=== PATIENT | male | born 1975 ===

== ENCOUNTER 2017-08-18 14:53 | Emergency (ER) | payer BC, OTHER ==
[2017-08-18 15:14] VITALS: BP 126/78; PULSE 74; RESP 18; TEMP 98; O2SAT 99
[2017-08-18] MEDS ORDERED: Albuterol-Ipratrop 3 mg / 0.5 (3 ml) UD INH STA (15:40)
--- NOTE | 2017-08-18 15:58 | ED PDOC ---
HPI: CCC, URI, Sore Throat Time Seen by Provider: 08/18/17 15:20 Chief Complaint (Nursing): Cough, Cold, Congestion Chief Complaint (Provider): Cough History Per: Patient History/Exam Limitations: no limitations Onset/Duration Of Symptoms: Days (x5) Current Symptoms Are (Timing): Still Present Additional Complaint(s): 42 y/o male presents to the Emergency Department with 5 day history of cough, productive of yellow sputum. Reports last night he developed a fever, with Tmax 101 but did not take any medications. States he's been taking mucinex without relief. Denies any chest pain, shortness of breath, hemoptysis, sick contacts, or recent travel. Patient is also complaining of dysuria for the past 3 days which has been improving. No penile discharge. Denies any nausea, vomiting, diarrhea, back pain, or flank pain. PMD: None Past Medical History Reviewed: Historical Data, Nursing Documentation, Vital Signs Vital Signs: Last Vital Signs Temp 98.0 F 08/18/17 15:12 Pulse 74 08/18/17 15:12 Resp 18 08/18/17 15:12 BP 126/78 08/18/17 15:12 Pulse Ox 99 08/18/17 16:00 - Surgical History Surgical History: No Surg Hx - Family History Family History: States: Unknown Family Hx - Social History Current smoker - smoking cessation education provided: No Alcohol: None Drugs: Denies - Home Medications Home Medications: Ambulatory Orders Medication Instructions Recorded Codeine Phosphate/Promethazi 5 ml PO Q6 #80 ml 05/29/14 [Promethazine with Codeine 10 mg/5 ml-6.25 mg/] Guaifenesin/Pseudoephedrne HCl 1 tab PO DAILY PRN #30 ter 05/29/14 [Mucinex D 600 mg-60 mg] Acetaminophen/Codeine Phosph 1 tab PO Q6H PRN #15 tab 01/15/15 [Acetaminophen/Codeine 300 mg-30 mg] Amoxicillin/Clavulanate Pota 1 tab PO BID #20 tab 01/15/15 [Augmentin 875 mg-125 mg] Albuterol HFA [Ventolin HFA 90 2 puff IH [id number] PRN #1 inhaler 08/18/17 mcg/actuation (8 g)] Azithromycin [Zithromax] 250 mg PO DAILY #6 tab 04/22/18 Promethazine DM [Phenergan DM 5 - 10 ml PO Q8 PRN #120 ml 08/18/17 Syrup] - Allergies Allergies/Adverse Reactions: Allergies Allergy/AdvReac Type Severity Reaction Status Date / Time No Known Allergies Allergy Verified 05/29/14 12:17 Review of Systems ROS Statement: Except As Marked, All Systems Reviewed And Found Negative Constitutional: Positive for: Fever Cardiovascular: Negative for: Chest Pain Respiratory: Positive for: Cough, Sputum. Negative for: Shortness of Breath, Hemoptysis Gastrointestinal: Negative for: Nausea, Vomiting, Diarrhea Genitourinary Male: Positive for: Dysuria. Negative for: Penile Discharge Musculoskeletal: Negative for: Back Pain, Other (Flank pain) Physical Exam - Reviewed Nursing Documentation Reviewed: Yes Vital Signs Reviewed: Yes - Physical Exam Appears: Positive for: No Acute Distress Head Exam: Positive for: ATRAUMATIC, NORMOCEPHALIC Skin: Positive for: Normal Color, Warm, Dry Eye Exam: Positive for: Normal appearance ENT: Positive for: Normal ENT Inspection Cardiovascular/Chest: Positive for: Regular Rate, Rhythm. Negative for: Murmur Respiratory: Positive for: Wheezing (bilateral expiratory wheezing, R > L). Negative for: Rales, Rhonchi, Respiratory Distress Back: Positive for: Normal Inspection. Negative for: L CVA Tenderness, R CVA Tenderness Neurologic/Psych: Positive for: Alert, Oriented - ECG O2 Sat by Pulse Oximetry: 99 (RA) Pulse Ox Interpretation: Normal - Radiology X-Ray: Interpreted by Me (CXR) X-Ray Interpretation: No Acute Disease (and confirmed by radiologist) - Progress Re-evaluation Time: 16:47 (Informed of results. Advised to f/u with PMD and to return to ED immediately if symptoms worsen. Lungs clear b/l ) Condition: Re-examined, Improved Medical Decision Making Medical Decision Making: Time: 15:49 Initial Plan: --Chest X-Ray --Chlamydia/GC RNA, TMA --Urine culture --Urinalysis --Duoneb 3 ml INH --Peak Flow pre/post treatment Scribe Attestation: Documented by Theresa Montgomery, acting as a scribe for Tavo Wise PA-C. Provider Scribe Attestation: All medical record entries made by the Scribe were at my direction and personally dictated by me. I have reviewed the chart and agree that the record accurately reflects my personal performance of the history, physical exam, medical decision making, and the department course for this patient. I have also personally directed, reviewed, and agree with the discharge instructions and disposition. Disposition - Clinical Impression Clinical Impression: Acute bronchitis - Patient ED Disposition Is Patient to be Admitted: No - Disposition Referrals: [facility] [Outside] [facility] [Outside] Disposition: Routine/Home Disposition Time: 16:51 Condition: IMPROVED Additional Instructions: Follow up with [facility] for further evaluation. Return to ED immediately if symptoms worsen. Prescriptions: Albuterol HFA [Ventolin HFA 90 mcg/actuation (8 g)] 2 puff IH [id number] PRN #1 inhaler PRN Reason: wheezing or cough Azithromycin [Zithromax] 250 mg PO DAILY #6 tab Promethazine DM [Phenergan DM Syrup] 5 - 10 ml PO Q8 PRN #120 ml PRN Reason: Cough Instructions: Acute Bronchitis, Adult (DC) Forms: [facility] (Senegalese), [facility] ED School/Work Excuse Print Language: DJIBOUTIAN
[2017-08-18] MEDS ORDERED: Albuterol-Ipratrop 3 mg / 0.5 (3 ml) UD ONE (16:22)
--- NOTE | 2017-08-18 16:40 | RAD ---
HISTORY: cough COMPARISON: Chest radiograph dated 01/15/2015 TECHNIQUE: Chest PA and lateral FINDINGS: LUNGS: No active pulmonary disease. PLEURA: No significant pleural effusion identified. No pneumothorax apparent. CARDIOVASCULAR: Normal. OSSEOUS STRUCTURES: No significant abnormalities. VISUALIZED UPPER ABDOMEN: Normal. OTHER FINDINGS: None. IMPRESSION: No active disease.
[2017-08-18 16:41] LABS: URINE BILIRUBIN NEGATIVE (NEGATIVE); URINE BLOOD NEGATIVE (NEGATIVE); URINE CLARITY SLIGHTY-CLOUDY (Clear); URINE COLOR YELLOW (YELLOW); URINE GLUCOSE (UA) NEG (Normal); URINE LEUKOCYTE ESTERASE NEG Leu/uL (Negative); URINE PROTEIN 30 mg/dL (NEGATIVE)
== END 2017-08-18 17:03 | disposition home or self-care (01) ==
LOC: H.ER 14:53
DX: J20.9 Acute bronchitis, unspecified (principal)

== ENCOUNTER 2018-05-26 17:45 | Emergency (ER) | payer OTHER ==
[2018-05-26 17:56] VITALS: BP 145/82; PULSE 67; RESP 16; TEMP 98.6; O2SAT 98
[2018-05-26] MEDS ORDERED: Promethazine/Cod 6.25mg-10mg/5ml Syr UD PO STA (18:15)
[2018-05-26] MEDS ORDERED: Naproxen 500 MG TAB PO ONE ×2 (18:15→18:50)
[2018-05-26] MEDS ORDERED: Albuterol 0.083% Inhal Sol (2.5 mg/3 mL) UD INH STA (18:15)
--- NOTE | 2018-05-26 18:41 | RAD ---
Date of service: 05/26/2018 HISTORY: cough COMPARISON: 08/18/2017 TECHNIQUE: Chest PA and lateral FINDINGS: LUNGS: No active pulmonary disease. PLEURA: No significant pleural effusion identified. No pneumothorax apparent. CARDIOVASCULAR: No aortic atherosclerotic calcification present. Normal cardiac size. No pulmonary vascular congestion. OSSEOUS STRUCTURES: No significant abnormalities. VISUALIZED UPPER ABDOMEN: Normal. OTHER FINDINGS: None. IMPRESSION: No active disease. No significant interval change compared to the prior examination(s).
[2018-05-26] MEDS ORDERED: Albuterol 0.083% Inhal Sol (2.5 mg/3 mL) UD ONE (18:58)
[2018-05-26] MEDS ORDERED: Promethazine/Cod 6.25mg-10mg/5ml Syr UD ONE (18:59)
--- NOTE | 2018-05-26 19:12 | ED PDOC ---
HPI: Influenza Time Seen by Provider: 05/26/18 17:59 Chief Complaint: Cough, Cold, Congestion Chief Complaint (Provider): Cough, bodyaches History Per: Patient Exam Limitations: no limitations Have you had recent travel within the past 21 days to any of: No Onset/Duration Of Symptoms: Days (5) Symptoms include: bodyaches, cough Sick Contacts (Context): Individual(s) At Work Hx Influenza Vaccination: No Additional complaint(s):: 43yo male, otherwise well, comes to ER reporting a productive cough with bodyaches and fever for the past 5 days. Patient reports the fever lasted for 3 days and has not recurred within the past 2 days; he states he cough has been progressively worsening. Patient states he has a coworker with similar symptoms as well. Otherwise, patient denies any rash, nausea, vomiting, diarrhea, abdominal pain, or hemoptysis. He denies any recent travels as well. PMD: None Past Medical History Reviewed: Historical Data, Nursing Documentation, Vital Signs Vital Signs: Last Vital Signs Temp 98.6 F 05/26/18 17:55 Pulse 67 05/26/18 17:55 Resp 16 05/26/18 17:55 BP 145/82 05/26/18 17:55 Pulse Ox 98 05/26/18 17:55 - Medical History PMH: No Chronic Diseases - Surgical History Surgical History: No Surg Hx - Family History Family History: States: No Known Family Hx - Home Medications Home Medications: Ambulatory Orders Medication Instructions Recorded Codeine Phosphate/Promethazi 5 ml PO Q6 #80 ml 05/29/14 [Promethazine with Codeine 10 mg/5 ml-6.25 mg/] Guaifenesin/Pseudoephedrne HCl 1 tab PO DAILY PRN #30 ter 05/29/14 [Mucinex D 600 mg-60 mg] Acetaminophen/Codeine Phosph 1 tab PO Q6H PRN #15 tab 01/15/15 [Acetaminophen/Codeine 300 mg-30 mg] Amoxicillin/Clavulanate Pota 1 tab PO BID #20 tab 01/15/15 [Augmentin 875 mg-125 mg] Albuterol HFA [Ventolin HFA 90 2 puff IH [id number] PRN #1 inhaler 08/18/17 mcg/actuation (8 g)] Azithromycin [Zithromax] 250 mg PO DAILY #6 tab 08/18/17 Promethazine DM [Phenergan DM 5 - 10 ml PO Q8 PRN #120 ml 08/18/17 Syrup] Albuterol HFA [Ventolin HFA 90 2 puff IH [id number] PRN #120 puff 05/26/18 mcg/actuation (8 g)] Promethazine DM [Phenergan DM 5 - 10 ml PO Q8 PRN #120 ml 05/26/18 Syrup] - Allergies Allergies/Adverse Reactions: Allergies Allergy/AdvReac Type Severity Reaction Status Date / Time No Known Allergies Allergy Verified 05/26/18 17:53 Review of Systems ROS Statement: Except As Marked, All Systems Reviewed And Found Negative Constitutional: Positive for: Malaise. Negative for: Fever, Chills Cardiovascular: Negative for: Chest Pain Respiratory: Positive for: Cough, Sputum. Negative for: Hemoptysis Gastrointestinal: Negative for: Nausea, Vomiting, Abdominal Pain, Diarrhea Physical Exam - Reviewed Nursing Documentation Reviewed: Yes Vital Signs Reviewed: Yes - Physical Exam Appears: Positive for: Non-toxic Head Exam: Positive for: ATRAUMATIC, NORMAL INSPECTION, NORMOCEPHALIC Skin: Positive for: Normal Color Eye Exam: Positive for: Normal appearance, EOMI, PERRL ENT: Negative for: Pharyngeal Erythema Neck: Positive for: Normal, Supple Cardiovascular/Chest: Positive for: Regular Rate, Rhythm Respiratory: Positive for: Normal Breath Sounds, Other (ctive coughing). Negative for: Rales, Rhonchi, Wheezing Gastrointestinal/Abdominal: Positive for: Normal Exam, Soft Back: Positive for: Normal Inspection Extremity: Positive for: Normal ROM Neurologic/Psych: Positive for: Alert, Oriented. Negative for: Motor/Sensory Deficits Medical Decision Making Medical Decision Making: Impression: 43yo male with cough, bodyaches; flu like illness, r/o pneumonia Plan: -- Discussed with patient that he is out of range for Tamiflu; informed the medication works best when administered within 48 hours of onset of symptoms. P atient is agreeable with holding off on Tamiflu -- Chest x-ray -- Naproxen 500mg PO -- Phenergan 5ml PO -- Albuterol 2.5mg INH Scribe Attestation: Documented by Marlys Webster, acting as a scribe for SUDARSHAN Lopez Provider Scribe Attestation: All medical record entries made by the Scribe were at my direction and personally dictated by me. I have reviewed the chart and agree that the record accurately reflects my personal performance of the history, physical exam, medical decision making, and the department course for this patient. I have also personally directed, reviewed, and agree with the discharge instructions and disposition. - ECG O2 Sat by Pulse Oximetry: 98 Disposition - Clinical Impression Clinical Impression: Influenza-like illness - Patient ED Disposition Is Patient to be Admitted: No - Disposition Referrals: [facility] [Outside] Disposition: Routine/Home Disposition Time: 19:12 Condition: IMPROVED Additional Instructions: FOLLOW UP WITH [facility] FOR FURTHER EVALUATION RETURN TO ED IMMEDIATELY IF SYMPTOMS WORSEN BALJEET MEYER, thank you for letting us take care of you today. Your provider was Jasmin Frankel MD and you were treated for COUGH. The emergency medical care you received today was directed at your acute symptoms. If you were prescribed any medication, please fill it and take as directed. It may take several days for your symptoms to resolve. Return to the Emergency Department if your symptoms worsen, do not improve, or if you have any other problems. Please contact your doctor or call one of the physicians/clinics you have been referred to that are listed on the Patient Visit Information form that is included in your discharge packet. Bring any paperwork you were given at discharge with you along with any medications you are taking to your follow up visit. Our treatment cannot replace ongoing medical care by a primary care provider outside of the emergency department. Thank you for allowing the [facility] team to be part of your care today. If you had an X-Ray or CT scan: A Radiologist will review the ED reading if any change in treatment is needed we will contact you. If you had a blood, urine, or wound culture: It will take several days for the results, if any change in treatment is needed we will contact you. If you had an STI test: It will take 48 hours for the results. Please call after 1 week if you have not heard back. Prescriptions: Albuterol HFA [Ventolin HFA 90 mcg/actuation (8 g)] 2 puff IH [id number] PRN #120 puff PRN Reason: Cough Promethazine DM [Phenergan DM Syrup] 5 - 10 ml PO Q8 PRN #120 ml PRN Reason: Cough Instructions: Flu, Adult (DC) Forms: [employer] (Bulgarian)
== END 2018-05-26 19:55 | disposition home or self-care (01) ==
LOC: H.ER 17:45
DX: R50.9 Fever, unspecified (principal); J11.1 Influenza due to unidentified influenza virus with other respiratory manifestations